=== PATIENT | male | born 1995 | race Caucasian/White ===

== ENCOUNTER 2016-09-19 11:53 | Emergency (ER) | payer BC, OTHER ==
[2016-09-19 12:21] VITALS: RESP 16; TEMP 97.5
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
[2016-09-19 14:07] VITALS: BP 116/72; PULSE 89; O2SAT 97
== END 2016-09-19 14:07 | disposition home or self-care (01) ==
DX: S09.90XA Unspecified injury of head, initial encounter (principal); T70.29XA Other effects of high altitude, initial encounter; H72.92 Unspecified perforation of tympanic membrane, left ear; F17.200 Nicotine dependence, unspecified, uncomplicated; W22.8XXA Striking against or struck by other objects, initial encounter